=== PATIENT | male | born 1955 | race Hispanic/Latino ===

== ENCOUNTER 2018-12-03 23:27 | Emergency (ER) | payer OTHER ==
[2018-12-03] MEDS ORDERED: ATIVAN PO PRN (23:35)
[2018-12-03] MEDS ORDERED: ATIVAN IM PRN (23:35)
[2018-12-03] MEDS ORDERED: HALDOL IM PRN (23:35)
[2018-12-03] MEDS ORDERED: ATIVAN IV PRN ×2 (23:35)
[2018-12-03] MEDS ORDERED: LIBRIUM PO PRN ×2 (23:35)
--- NOTE | 2018-12-03 23:37 | Emergency Department Report ---
<MANUELITO CHAVEZ - Last Filed: 12/04/18 13:48> ED Alcohol HPI - General Chief Complaint: Alcohol Stated Complaint: ETOH Time Seen by Provider: 12/03/18 23:34 - Related Data Allergies Allergy/AdvReac Type Severity Reaction Status Date / Time No Known Allergies Allergy Unverified 12/03/18 23:37 ED Course - Reevaluation(s) Reevaluation #5: 12/04/18 13:49 Patient is alert O x 3 with steady gait. No longer combative and without signs of psychosis. 2012 rescinded and patient will be discharged home ED Medical Decision Making - Lab Data Result diagrams: 12/04/18 00:36 12/04/18 00:36 ED Disposition Clinical Impression: Alcohol intoxication, Hypomagnesemia Disposition: DC-01 TO HOME OR SELFCARE Is pt being admited?: No Does the pt Need Aspirin: No Condition: Stable Instructions: Abuse of Alcohol (ED), Hypomagnesemia (ED) Additional Instructions: Take the medication as prescribed. Follow up with your doctor or the clinic/doctor provided. Return if symptoms worsen as indicated by your discharge instructions Referrals: JASBIR LOPEZCHESTER MD ALICJA [Primary Care Provider] - 3-5 Days [facility] [Outside] - 3-5 Days Time of Disposition: 13:49 <JUAN STEVENS - Last Filed: 12/04/18 20:13> ED Alcohol HPI - General Source: EMS (verbal report received from EMS.ems notes not available at time of chart dictation) Mode of arrival: Stretcher Limitations: Physical Limitation, Other (patient is intoxicated) - History of Present Illness Initial Comments: This is a 63-year-old gentleman. The patient is not known to this provider previously. The patient is brought to the hospital by emergency medical services for presumed alcohol intoxication. As per verbal report from emergency medical services, patient was walking in and out of stores, and apparently passersby contacted 911. No family or friends at this time are available for collateral information. EMS states there is no history of blunt trauma today. In the emergency room, the patient is floridly intoxicated, covered in feces, and he is wet from his pants down. He is moving 4 extremities, and he is not able to describe to me what happened today. The patient is babbling nonsensically. He makes no common tobacco homicidality or suicidality. Patient cannot describe exacerbating or relieving factors, aggravating factors, qualitative nature of his symptoms. MD Complaint: alcohol intoxication Last Drink: unknown Associated Symptoms: other ED Review of Systems ROS: Stated complaint: ETOH Other details as noted in HPI Comment: Unobtainable due to pts medical conditions ED Physical Exam - General Limitations: Altered Mental Status, Other (patient intoxicated) General appearance: appears intoxicated - Head Head exam: Present: normocephalic - Eye Eye exam: Present: PERRL. Absent: normal appearance (supraorbital abrasions noted) - ENT ENT exam: Present: normal orophraynx, normal external ear exam - Neck Neck exam: Present: normal inspection. Absent: tenderness, meningismus - Respiratory Respiratory exam: Present: normal lung sounds bilaterally. Absent: respiratory distress, wheezes, rales, rhonchi, stridor - Cardiovascular Cardiovascular Exam: Present: regular rate, normal rhythm, normal heart sounds. Absent: bradycardia, tachycardia, irregular rhythm - GI/Abdominal GI/Abdominal exam: Present: soft. Absent: distended, tenderness, guarding, rebound, rigid, pulsatile mass - Rectal Rectal exam: Present: normal inspection - exam: Present: normal inspection External exam: Present: normal external exam - Extremities Exam Extremities exam: Present: full ROM, other (2+ pulses noted in the bilateral upper, lower extremities. Compartments soft. No long bony tenderness. The pelvis is stable.) - Back Exam Back exam: Present: normal inspection, full ROM. Absent: tenderness, CVA tenderness (R), paraspinal tenderness - Neurological Exam Neurological exam: Present: altered, other (patient willing for Helga spontaneously. Nonsensical speech. No obvious facial droop. Detailed neurologic examination not possible secondary to patient's intoxication) - Psychiatric Psychiatric exam: Present: anxious - Skin Skin exam: Present: dry ED Course Vital Signs 12/03/18 12/04/18 12/04/18 23:37 00:05 01:00 Temperature 97.8 F Pulse Rate 88 Respiratory 18 Rate Blood Pressure 124/76 124/77 76/46 Blood Pressure 124/76 [Left] O2 Sat by Pulse 98 98 86 Oximetry 12/04/18 12/04/18 12/04/18 01:31 02:00 02:11 Temperature Pulse Rate 83 72 Respiratory 14 15 Rate Blood Pressure 126/81 100/58 Blood Pressure [Left] O2 Sat by Pulse 99 100 99 Oximetry 12/04/18 12/04/18 12/04/18 02:30 03:00 03:31 Temperature Pulse Rate 75 76 82 Respiratory 14 15 13 Rate Blood Pressure 112/64 114/70 114/70 Blood Pressure [Left] O2 Sat by Pulse 100 100 100 Oximetry 12/04/18 12/04/18 12/04/18 04:00 04:30 05:00 Temperature Pulse Rate 76 75 73 Respiratory 14 14 14 Rate Blood Pressure 115/70 107/64 120/77 Blood Pressure [Left] O2 Sat by Pulse 100 100 100 Oximetry 12/04/18 12/04/18 12/04/18 05:30 06:01 06:31 Temperature Pulse Rate 80 85 82 Respiratory 11 L 14 23 Rate Blood Pressure 130/84 99/81 113/71 Blood Pressure [Left] O2 Sat by Pulse 100 99 98 Oximetry 12/04/18 12/04/18 12/04/18 07:00 07:31 08:00 Temperature Pulse Rate 77 77 Respiratory 17 16 17 Rate Blood Pressure 119/68 94/47 Blood Pressure [Left] O2 Sat by Pulse 99 99 98 Oximetry 12/04/18 12/04/18 12/04/18 08:30 09:00 09:30 Temperature Pulse Rate 81 79 81 Respiratory 17 18 17 Rate Blood Pressure 116/65 96/52 93/56 Blood Pressure [Left] O2 Sat by Pulse 100 98 97 Oximetry 12/04/18 12/04/18 12/04/18 10:01 10:30 11:00 Temperature Pulse Rate 81 83 83 Respiratory 16 17 19 Rate Blood Pressure 126/77 124/79 130/81 Blood Pressure [Left] O2 Sat by Pulse 99 98 99 Oximetry 12/04/18 12/04/18 12/04/18 11:30 12:00 12:31 Temperature Pulse Rate 80 86 84 Respiratory 18 18 16 Rate Blood Pressure 136/67 137/75 114/61 Blood Pressure [Left] O2 Sat by Pulse 100 98 85 Oximetry 12/04/18 12/04/18 12/04/18 13:00 13:31 14:01 Temperature Pulse Rate 92 H 90 97 H Respiratory 16 19 22 Rate Blood Pressure 123/66 111/71 111/69 Blood Pressure [Left] O2 Sat by Pulse 86 88 86 Oximetry - Reevaluation(s) Reevaluation #1: 12/04/18 00:21 Differential diagnosis, including without limited to: Alcohol intoxication, dehydration, lack to light H, intracranial injury, cervical spine injury Assessment and plan: 63-year-old gentleman with clinical intoxication. Patient is awake, and protecting his airway. His motor exam is nonfocal. He's made no aggressive behavior or comments, and has not endorse suicidality or homicidality. He is placed on the 2013 for alcohol intoxication. Screening laboratory studies, Accu-Chek ordered. Noncontrast CT scan of the brain, cervical spine ordered. Reassess after initial data points. Patient will likely remain in the emergency room pending resolution of intoxication. Reevaluation #2: 12/04/18 01:10 Patient's blood pressure 87/50. Patient is very skinny. He is most likely dehydrated, we will give IV fluid wide open resuscitation. CT scan interpretation pending. Laboratory study interpretation pending. Reevaluation #3: 12/04/18 01:31 Laboratories demonstrate hyponatremia, hypomagnesemia. Consistent with dehydration, malnutrition. Blood alcohol level not resulted. CT scan of the brain, cervical spine not resulted yet. Care will be transferred to the overnight physician, Dr. Eryn Harris, to follow up on CT scans, and reassess after fluid infusion. Suspect patient will require prolonged stay in the emergency room to regain clinical sobriety. Reevaluation #4: 12/04/18 01:39 ct head negative for acute disease BAL 0.32 ED Medical Decision Making - Lab Data Result diagrams: 12/04/18 00:36 12/04/18 00:36 Vital Signs 12/03/18 23:37 Temperature 97.8 F Pulse Rate 88 Respiratory 18 Rate Blood Pressure 124/76 Blood Pressure 124/76 [Left] O2 Sat by Pulse 98 Oximetry - Radiology Data Radiology results: pending, image reviewed Critical care attestation.: If time is entered above; I have spent that time in minutes in the direct care of this critically ill patient, excluding procedure time.
[2018-12-04 00:57] LABS: Hematocrit 49.4 % (35.5-45.6); Mean Corpuscular HGB Conc 34 % (32-34); Mean Corpuscular Volume 107 fl (84-94); Platelet Count 121 K/mm3 (140-440); Red Cell Distribution Width 14.5 % (13.2-15.2)
[2018-12-04] MEDS ORDERED: NACL 0.9% 1000 ML 2,000 ML IV ONE ×2 (01:10)
[2018-12-04 01:14] LABS: INR 0.93 (0.87-1.13)
[2018-12-04 01:15] LABS: Partial Thromboplastin Time 30.9 Sec. (24.2-36.6)
[2018-12-04 01:17] LABS: BUN/Creatinine Ratio 25; Blood Urea Nitrogen 15 mg/dL (9-20); Calcium 9.4 mg/dL (8.4-10.2); Hemolysis Index 15
[2018-12-04] MEDS ORDERED: MAGNESIUM SULFATE 2GM/50ML 2 GM/50 ML BAG IV ONE (01:21)
[2018-12-04] MEDS ORDERED: MAGNESIUM SULFATE 1 GM in NACL 0.9% 50 ML IV ONE (01:21)
--- NOTE | 2018-12-04 01:38 | Cat Scan Report ---
PROCEDURE: CT HEAD/BRAIN WO CON TECHNIQUE: Computerized tomography of the head was performed without contrast material. CT DOSE LENGTH PRODUCT: 1139.3 mGycm HISTORY: etoh intox ams COMPARISONS: None . FINDINGS: Skull and scalp: Normal . Paranasal sinuses: Normal . Ventricles and subarachnoid spaces: There is mild central and cortical atrophy. There is no hydrocep halus or asymmetry. . Cerebrum: No evidence of hemorrhage, acute infarction or mass . There is chronic deep white matter i schemic gliosis Cerebellum and brainstem: No evidence of hemorrhage, acute infarction or mass . Vasculature: Normal . IMPRESSION: There is no acute intracranial abnormality. . This document is electronically signed by Steve Pena MD., Dec 04 2018 01:36:20 AM ET
--- NOTE | 2018-12-04 01:40 | Cat Scan Report ---
PROCEDURE: CT CERVICAL SPINE WO CON TECHNIQUE: Computerized tomography of the cervical spine was performed from the skull base to T1 wit hout contrast material. CT DOSE LENGTH PRODUCT: 426.9 mGycm HISTORY: etoh intox ams COMPARISONS: None . FINDINGS: The skull base and the foramen magnum are intact. There is no fracture or malalignment of the cervical spine. There are multilevel degenerative disc ch anges. Facet joints are intact. Soft tissues are unremarkable. IMPRESSION: No significant abnormality . This document is electronically signed by Steve Pena MD., Dec 04 2018 01:38:37 AM ET
[2018-12-04] MEDS ORDERED: NACL 0.9% 1000 ML 1,000 ML ONE (03:19)
--- NOTE | 2018-12-04 14:05 | Consultation ---
History of Present Illness - Reason for Consult Consult date: 12/04/18 Reason for consult: Initial Psychiatric Evaluation - Chief Complaint Chief complaint: Patient discharged before seen. Medications and Allergies Allergies Allergy/AdvReac Type Severity Reaction Status Date / Time No Known Allergies Allergy Unverified 12/03/18 23:37 Active Meds: Active Medications Chlordiazepoxide HCl (Librium) 50 mg PO Q1HR PRN PRN Reason: CIWA-Ar 8-15 Chlordiazepoxide HCl (Librium) 100 mg PO Q1HR PRN PRN Reason: CIWA-Ar 16-25 Haloperidol Lactate (Haldol) 5 mg IM Q6HR PRN PRN Reason: Agitation Lorazepam (Ativan) 2 mg IM Q4HR PRN PRN Reason: Agitation Last Admin: 12/04/18 00:10 Dose: 2 mg Documented by: Lorazepam (Ativan) 2 mg PO Q1HR PRN PRN Reason: CIWA-Ar 8-15 Lorazepam (Ativan) 4 mg IV Q1HR PRN PRN Reason: CIWA-Ar 16-25 Lorazepam (Ativan) 4 mg IV Q15MIN PRN PRN Reason: CIWA-Ar >25 Mental Status Exam - Vital signs Last Vital Signs Temp 97.8 F 12/03/18 23:37 Pulse 79 12/04/18 09:00 Resp 18 12/04/18 09:00 BP 96/52 12/04/18 09:00 Pulse Ox 98 12/04/18 09:00 Results Result Diagrams: 12/04/18 00:36 12/04/18 00:36 Abnormal lab results 12/04/18 12/04/18 12/04/18 Range/Units 00:36 00:36 00:36 Hgb 17.0 H (11.8-15.2) gm/dl Hct 49.4 H (35.5-45.6) % MCV 107 H (84-94) fl MCH 37 H (28-32) pg Plt Count 121 L (140-440) K/mm3 Sodium 126 L (137-145) mmol/L Chloride 83.1 L (98-107) mmol/L Creatinine 0.6 L (0.8-1.5) mg/dL Glucose 105 H (75-100) mg/dL Magnesium 1.60 L (1.7-2.3) mg/dL Total Creatine Kinase 265 H (55-170) units/L Salicylates < 0.3 L (2.8-20.0) mg/dL Acetaminophen (10.0-30.0) ug/mL Plasma/Serum Alcohol (0-0.07) % 12/04/18 12/04/18 Range/Units 00:36 00:36 Hgb (11.8-15.2) gm/dl Hct (35.5-45.6) % MCV (84-94) fl MCH (28-32) pg Plt Count (140-440) K/mm3 Sodium (137-145) mmol/L Chloride (98-107) mmol/L Creatinine (0.8-1.5) mg/dL Glucose (75-100) mg/dL Magnesium (1.7-2.3) mg/dL Total Creatine Kinase (55-170) units/L Salicylates (2.8-20.0) mg/dL Acetaminophen < 5.0 L (10.0-30.0) ug/mL Plasma/Serum Alcohol 0.32 H (0-0.07) % All other labs normal.
[2018-12-04 14:29] VITALS: BP 111/69
== END 2018-12-04 14:29 | disposition home or self-care (01) ==
LOC: EEVIPCON 23:27 → ED 23:27
DX: F10.129 Alcohol abuse with intoxication, unspecified (principal); E83.42 Hypomagnesemia; R41.82 Altered mental status, unspecified
CPT/HCPCS: 36415; 70450; 72125; 80048; 82550; 83735; 85027; 85610; 85730; 96365; 96366; 96372; 99285; G0480; J2060; J3475; J7030; 80320